=== PATIENT | female | born 1960 ===

== ENCOUNTER 2019-03-02 08:55 | Outpatient (CLI) | payer OTHER | END 2019-03-02 08:56 | disposition home or self-care (01) | LOC: C.PAT 08:55 | DX: N85.00 Endometrial hyperplasia, unspecified (principal) ==

== ENCOUNTER 2019-03-14 07:45 | Day surgery (SDC) | payer OTHER ==
[2019-03-14 08:32] VITALS: BMI 32.5
[2019-03-14] MEDS ORDERED: Propofol 10 mg/ml Inj (20 ML) ONE (10:38)
[2019-03-14] MEDS ORDERED: Midazolam 2 MG/2 ML VIAL ONE (10:38)
--- NOTE | 2019-03-14 11:49 | PCM.SURG1 ---
Surgeon's Initial Post Op Note - Surgeon's Notes Surgeon: Dr. Lopez Accounts Payable Processor: None Type of Anesthesia: General LMA Anesthesia Administered By: Dr. Ayala Pre-Operative Diagnosis: 58 yo with Postmenopausal Spotting, Pelvic pain , Thickened endometrium Operative Findings: Av uterus , IUD , endometrial polyp Post-Operative Diagnosis: Same as above Operation Performed: Hysteroscopy D and C, IUD Removal , Polypectomy Specimen/Specimens Removed: emc, ecc, polyp Estimated Blood Loss: EBL {In ML}: 10 Blood Products Given: N/A Drains Used: No Drains Post-Op Condition: Good Date of Surgery/Procedure: 03/14/19 Time of Surgery/Procedure: 11:49
[2019-03-14] MEDS: HYDROmorphone 0.5 mg/0.5 ml ISec IVP PRN ×2 (12:10→12:24)
[2019-03-14 13:30] VITALS: BP 125/75; PULSE 63; RESP 15; TEMP 97.8; O2SAT 97
--- NOTE | 2019-03-14 21:55 | OP ---
PROCEDURE DATE: 03/14/2019 PREOPERATIVE DIAGNOSIS: A 58-year-old female with postmenopausal spotting, thickened endometrium, intrauterine device, and endometrial polyp. POSTOPERATIVE DIAGNOSIS: A 58-year-old female with postmenopausal spotting, thickened endometrium, intrauterine device, and endometrial polyp. PROCEDURES: Hysteroscopy, dilatation and curettage,polypectomy, and intrauterine device removal. SURGEON: Cynthia Lopez MD PIPE FITTER GAS PIPE: None. TYPE OF ANESTHESIA: General LMA ANESTHESIA ADMINISTERED BY: Matheus Singh MD FINDINGS: An anteverted uterus, approximately 6 to 8 weeks' gestation, noted to have an imbedded IUD as well as an endometrial polyp. COMPLICATIONS: None. ESTIMATED BLOOD LOSS: Approximately 5 mL. INPUT AND OUTPUT: 100 mL. SPECIMENS: EMC, ECC, polyp as well as IUD. DESCRIPTION OF PROCEDURE: The patient was informed of the risk factors, benefits, and alternatives of the procedure. Risks factors included infection, bleeding, damage to the surrounding organs and tissues, complication from anesthesia and possible . After the informed consent was obtained, she was then taken to the operating room, prepped and draped in the normal sterile fashion, placed in dorsal lithotomy position. A weighted speculum was placed into the vagina. The anterior lip of the cervix was grasped with a single-tooth tenaculum. The uterus was gently sounded to approximately 7 cm. Upon completing evaluation, the scope was then placed. It was identified that she had an imbedded IUD. The IUD removal was inserted through the hysteroscopy. Under direct visualization, the IUD was then removed. In that particular instance, the MyoSure was attempted but not successful. Polypectomy was then performed and submitted to pathology. The hysteroscopy was then removed and a fractional D and C was performed. EMC as well as ECC submitted to pathology. Excellent hemostasis was noted. Upon completion, all instruments were removed from the vagina. Instruments and lap counts were correct x2. The patient was then taken to recovery in stable condition and instructed to follow up in the office in approximately two weeks. Cynthia Lopez MD [facility] # [id number]
== END 2019-03-14 13:44 | disposition home or self-care (01) ==
LOC: C.SDS 07:45
PROVIDERS: ATTEND Obstetrics & Gynecology
DX: N84.0 Polyp of corpus uteri (principal); N95.0 Postmenopausal bleeding; R93.89 Abnormal findings on diagnostic imaging of other specified body structures; Z30.432 Encounter for removal of intrauterine contraceptive device
CPT/HCPCS: 58558; 58562; 88305; J1170; J2250; J2405; J2704; J3010; J7120